=== PATIENT | male | born 1980 | race Caucasian/White ===

== ENCOUNTER → 2017-06-17 | Day surgery (SDC) | payer OTHER ==
[~2017-06-17] MED LIST: CO Q-10 PO; FENTANYL CITRATE/PF 100MCG/2 ML INJ ONE; FISH OIL 1,0001 EAC2 PO; FUROSEMIDE40 MG PO; LIDOCAINE HCL 2% LOCAL INJ 5 ML SDV VIAL INJ ONE; MIDAZOLAM HCL 2 MG/2 ML VIAL ONE; PROPOFOL IV EMULSION 10 MG/ML 20 ML VIAL ONE; SPIRONOLACTONE25 MG PO
[2017-06-17 13:02] LABS: BASOPHILS # (AUTO) 0.1 (0.0-0.1); BASOPHILS % 0.6 % (0.0-1.0); EOSINOPHILS # (AUTO) 0.2 (0.0-0.4); EOSINOPHILS % 1.6 % (0.0-6.0); LYMPHOCYTES # (AUTO) 1.4 (1.0-3.2); LYMPHOCYTES % 14.4 % (18.0-39.1); MEAN CORPUSCULAR HEMOGLOBIN 36.6 pg (28-32); MEAN CORPUSCULAR HGB CONC 35.1 g/dL (31-35); MEAN CORPUSCULAR VOLUME 104.2 fL (81-99); MONOCYTES # (AUTO) 1.1 (0.2-0.8); MONOCYTES % 11.6 % (4.4-11.3); NEUTROPHILS # (AUTO) 6.5 (2.1-6.9); NEUTROPHILS % 69.5 % (38.7-80.0); PLATELET COUNT 100 x10e3/uL (140-360); RED BLOOD COUNT 3.55 x10e6/uL (4.3-5.7); RED CELL DISTRIBUTION WIDTH 13.9 % (11.7-14.4)
[2017-06-17 13:21] LABS: INR 1.84; PROTHROMBIN TIME 22.2 seconds (11.9-14.5)
[2017-06-17 13:22] LABS: PARTIAL THROMBOPLASTIN TIME 36.6 seconds (23.8-35.5)
[2017-06-17 13:28] LABS: ALANINE AMINOTRANSFERASE 88 IU/L (0-55); ALBUMIN 1.8 g/dL (3.5-5.0); ALBUMIN/GLOBULIN RATIO 0.3 (0.8-2.0); ALKALINE PHOSPHATASE 110 IU/L (40-150); ANION GAP 10.6 mmol/L (8-16); BLOOD UREA NITROGEN 8 mg/dL (7-26); BUN/CREATININE RATIO 11 (6-25); CALCIUM 7.9 mg/dL (8.4-10.2); CARBON DIOXIDE 24 mmol/L (22-29); CHLORIDE 96 mmol/L (98-107); CREATININE, SERUM 0.72 mg/dL (0.72-1.25); EST GLOMERULAR FILTRATION RATE > 60 ML/MIN (60-); GLUCOSE 92 mg/dL (74-118); POTASSIUM 4.6 mmol/L (3.5-5.1); SODIUM 126 mmol/L (136-145)
[2017-06-17] MEDS: PHYTONADIONE 10 MG/ML AMP IM NR ×2 (15:00→16:30)
== END | disposition home or self-care (01) ==
LOC: OR 12:31
PROVIDERS: ATTEND Internal Medicine Gastroenterology
DX: K74.60 Unspecified cirrhosis of liver (principal); I85.10 Secondary esophageal varices without bleeding; K29.70 Gastritis, unspecified, without bleeding; B18.1 Chronic viral hepatitis B without delta-agent; R18.8 Other ascites; E66.9 Obesity, unspecified; Z68.30 Body mass index [BMI] 30.0-30.9, adult; Z87.891 Personal history of nicotine dependence
CPT/HCPCS: 36415; 43235; 80053; 85025; 85610; 85730; J2001; J2250; J3430

== ENCOUNTER → 2017-07-01 | Outpatient (CLI) | payer OTHER ==
[~2017-07-01] MED LIST changes: -FENTANYL CITRATE/PF 100MCG/2 ML INJ ONE; -LIDOCAINE HCL 2% LOCAL INJ 5 ML SDV VIAL INJ ONE; -MIDAZOLAM HCL 2 MG/2 ML VIAL ONE; -PROPOFOL IV EMULSION 10 MG/ML 20 ML VIAL ONE
--- NOTE | 2017-07-01 09:36 | Diagnostic Imaging Report ---
PROCEDURE:ABDOMINAL ULTRASOUND COMPARISON:None. INDICATIONS:Cirrhosis, Hepatitis B, Ascites FINDINGS: Liver: Measures 15.0 cm in the midclavicular line. Nodular contour of the liver. Normal hepatic parenchymal echogenicity. No focal mass. Main portal vein: Measures 10 mm with normal hepatopedal flow. Gallbladder: Small and contracted and not well seen Common Bile Duct: Measures 0.3 cm. No echogenic filling defect. Sonographic Narvaez's sign: Negative Right kidney: Measures 11.8 x 5.3 x 6.1 cm. No solid or cystic mass, echogenic calculi or hydronephrosis. Normal parenchymal echogenicity. Left kidney: Measures 11.7 x 5.0 x 5.9 cm. No solid or cystic mass, echogenic calculi or hydronephrosis. Normal parenchymal echogenicity. Spleen: Enlarged measuring 13.9 cm. Pancreas: Not well-seen. Inferior vena cava: Not well evaluated. Aorta: Not well evaluated. Ascites: Moderate amount of abdominal ascites. CONCLUSION: 1. Small nodular appearing liver compatible with cirrhosis. 2. Enlarged spleen without mass. 3. Moderate amount of abdominal and pelvic ascites. Abdoul Schultz D.O. Dictated by: Abdoul Schultz D.O. on 07/01/2017 at 9:44 Electronically approved by: Abdoul Schultz D.O. on 07/01/2017 at 9:44
== END ==
LOC: US 08:03
PROVIDERS: ATTEND Internal Medicine Gastroenterology
DX: K74.60 Unspecified cirrhosis of liver (principal); R18.8 Other ascites; K73.8 Other chronic hepatitis, not elsewhere classified; B19.10 Unspecified viral hepatitis B without hepatic coma; Z71.3 Dietary counseling and surveillance; Z68.30 Body mass index [BMI] 30.0-30.9, adult
CPT/HCPCS: 76700